=== PATIENT | male | born 1965 | race Two or more races ===

== ENCOUNTER 2022-10-31 06:38 | Inpatient (IN) | payer MEDICARE ==
[2022-10-31] VITALS (7 sets, daily range): BP systolic 134–174; BP diastolic 78–94
[~2022-10-31] VITALS: Ht 157.5 cm; Wt 54.5 kg
[2022-10-31] MEDS ORDERED: VANCOMYCIN 1GM/WATER(PEG/NADA) 200 ML IV ONE (07:30)
[2022-10-31] MEDS ORDERED: 0.9% SODIUM CHLORIDE 10 ML SYRINGE IVP PRN (07:45)
[2022-10-31] MEDS ORDERED: ONDANSETRON HCL 4 MG/2 ML VIAL IVP PRN ×2 (07:45→12:45)
[2022-10-31] MEDS ORDERED: SODIUM CHLORIDE 0.9% 1,000 ML IV ONE ×2 (07:45→12:45)
[2022-10-31 08:09] LABS: BASOPHILS % (AUTO) 0.7 % (0.0-2.0); EOSINOPHILS % (AUTO) 1.8 % (1.0-6.0); LYMPHOCYTES # (AUTO) 1.1 K/uL (1.0-4.8); LYMPHOCYTES % (AUTO) 9.1 % (22.0-44.0); MEAN CORPUSCULAR HEMOGLOBIN 29.8 pg (26.0-34.0); MEAN CORPUSCULAR HGB CONC 32.7 G/dL (31.0-37.0); MEAN CORPUSCULAR VOLUME 91 fL (80-100); MONOCYTES # (AUTO) 0.6 K/uL (0.1-1.0); NEUTROPHILS # (AUTO) 10.1 K/uL (1.8-7.7); NEUTROPHILS % (AUTO) 83.4 % (40.0-70.0); PLATELET COUNT (AUTO) 345 K/uL (150-450); RED BLOOD CELL COUNT(AUTO) 1.75 MIL/uL (4.50-5.90); RED CELL DISTRIBUTION WIDTH 16.5 % (11.5-14.5)
[2022-10-31 08:11] LABS: CALCIUM, TOTAL 7.1 mg/dL (8.8-10.5); CREATININE 5.86 mg/dL (0.60-1.30); POTASSIUM 4.2 mmol/L (3.5-5.1)
[2022-10-31 08:12] LABS: INR 1.1 (0.9-1.1); PROTHROMBIN TIME 11.2 SEC (9.4-11.6)
[2022-10-31 08:17] LABS: ALBUMIN 2.5 g/dL (3.4-5.0); BILIRUBIN,TOTAL 0.3 mg/dL (0.1-1.0); C-REACTIVE PROTEIN QUANT 6.52 mg/dL (0.00-0.30); TOTAL PROTEIN, SERUM 8.5 g/dL (6.4-8.2)
[2022-10-31 08:24] LABS: HEMOGLOBIN 5.2 g/dL (13.5-17.5)
[2022-10-31 08:33] LABS: LACTIC ACID 0.6 mmol/L (0.4-2.0)
[2022-10-31 09:03] LABS: GLUCOMETER DEV NAME(LOC) ERT.5; GLUCOSE,POINT OF CARE 175 MG/DL (70-110)
[2022-10-31 09:56] LABS: ERYTHROCYTE SEDIMENTATION RATE > 120 MM/HR (0-15)
[2022-10-31 10:39] LABS: COVID AG,FIA SOURCE NASAL SWAB
[2022-10-31] MEDS ORDERED: HYDROCODONE/ACETAMINOPHEN 5-325 MG TABLET PO PRN (12:45)
[2022-10-31] MEDS ORDERED: BISACODYL 10 MG RECTAL RECTAL SUPPOSITORY PR PRN (12:45)
[2022-10-31] MEDS ORDERED: MAGNESIUM HYDROXIDE SUSPENSION 30 ML UDCUP PO PRN (12:45)
[2022-10-31] MEDS ORDERED: MORPHINE SULFATE 2 MG/ML SYRINGE IVP PRN (12:45)
[2022-10-31] MEDS ORDERED: DEXTROSE 50%-WATER 25 GM/50 ML SYRINGE IVP PRN (12:45)
[2022-10-31] MEDS ORDERED: ACETAMINOPHEN 325 MG TABLET PO PRN (12:45)
[2022-10-31] MEDS ORDERED: ZOLPIDEM TARTRATE 5 MG TABLET PO PRN (12:45)
[2022-10-31] MEDS: AmLODIPine BESYLATE 10 MG TABLET PO SCH (13:02)
[2022-10-31] MEDS: PIPERACILLIN SODIUM/TAZOBACTAM 2.25 GM in DEXTROSE 5%-WATER 50 ML IV SCH ×2 (13:37→19:58)
[2022-10-31] MEDS: INSULIN LISPRO 100 UNITS/ML SQ PRN (16:56)
[2022-10-31] MEDS ORDERED: DEXTROSE 5%-0.9% SODIUM CHL 1,000 ML IV SCH (17:00)
[2022-10-31] MEDS ORDERED: PNEUMOCOCCAL VACCINE POLYVALENT 0.5 ML VIAL [PPSV23] IM. ONE (17:00)
[2022-10-31] MEDS ORDERED: EPOETIN ALFA 10,000 UNITS/ML VIAL SQ SCH (17:20)
[2022-10-31] MEDS: SODIUM BICARBONATE 75 MEQ in DEXTROSE 5%-0.45% SODIUM CHL 1,000 ML IV SCH (18:20)
[2022-10-31] MEDS ORDERED: INFLUENZA VIRUS VACCINE QVS 2022-23 (6MO+)/PF 60 MCG/0.5 ML SYRINGE IM. ONE (19:30)
[2022-10-31] MEDS: DOCUSATE SODIUM 100 MG CAPSULE PO SCH (19:58)
[2022-10-31] MEDS: HydrALAZINE HCL 50 MG TABLET PO SCH (19:58)
[2022-11-01] VITALS (13 sets, daily range): BP systolic 108–145; BP diastolic 60–97
[2022-11-01] MEDS ORDERED: SODIUM CHLORIDE 0.9% 250 ML IV ONE ×3 (02:51→21:20)
[2022-11-01 03:43] LABS: GLUCOMETER DEV NAME(LOC) 6N.2B; GLUCOSE,POINT OF CARE 129 MG/DL (70-110)
[2022-11-01 03:43] LABS: GLUCOMETER DEV NAME(LOC) 6N.1; GLUCOSE,POINT OF CARE 100 MG/DL (70-110)
[2022-11-01] MEDS: PIPERACILLIN SODIUM/TAZOBACTAM 2.25 GM in DEXTROSE 5%-WATER 50 ML IV SCH ×3 (06:24→21:05)
[2022-11-01 07:17] LABS: GLUCOMETER DEV NAME(LOC) 6N.1; GLUCOSE,POINT OF CARE 107 MG/DL (70-110)
[2022-11-01] MEDS: SODIUM BICARBONATE 75 MEQ in DEXTROSE 5%-0.45% SODIUM CHL 1,000 ML IV SCH (08:22)
[2022-11-01] MEDS: IRON SUCROSE COMPLEX 200 MG in SODIUM CHLORIDE 0.9% 100 ML IV SCH (08:22)
[2022-11-01] MEDS: AmLODIPine BESYLATE 10 MG TABLET PO SCH (08:23)
[2022-11-01] MEDS: HydrALAZINE HCL 50 MG TABLET PO SCH ×2 (08:23→21:05)
[2022-11-01] MEDS: DOCUSATE SODIUM 100 MG CAPSULE PO SCH ×2 (08:23→21:05)
[2022-11-01] MEDS: PANTOPRAZOLE SODIUM 40 MG DR TABLET PO SCH (08:23)
[2022-11-01 09:07] LABS: HEMATOCRIT 29.7 % (41-53); HEMOGLOBIN 10.2 g/dL (13.5-17.5); LYMPHOCYTES % (AUTO) 11.4 % (22.0-44.0); MEAN CORPUSCULAR HEMOGLOBIN 30.5 pg (26.0-34.0); MEAN CORPUSCULAR HGB CONC 34.4 G/dL (31.0-37.0); MEAN CORPUSCULAR VOLUME 89 fL (80-100); MONOCYTES # (AUTO) 0.4 K/uL (0.1-1.0); NEUTROPHILS # (AUTO) 7.1 K/uL (1.8-7.7); NEUTROPHILS % (AUTO) 80.6 % (40.0-70.0); PLATELET COUNT (AUTO) 324 K/uL (150-450); RED BLOOD CELL COUNT(AUTO) 3.34 MIL/uL (4.50-5.90)
[2022-11-01 09:22] LABS: CALCIUM, TOTAL 7.8 mg/dL (8.8-10.5); CREATININE 5.26 mg/dL (0.60-1.30); HEMOGLOBIN A1C 5.5 % (3.8-5.6); PHOSPHORUS 7.1 mg/dL (2.5-4.9); POTASSIUM 4.4 mmol/L (3.5-5.1)
[2022-11-01] MEDS: CALCIUM ACETATE 667 MG CAPSULE PO SCH ×2 (12:19→18:13)
[2022-11-01] MEDS: INSULIN LISPRO 100 UNITS/ML SQ PRN ×3 (12:35→21:13)
[2022-11-01 15:18] LABS: GLUCOMETER DEV NAME(LOC) 6N.1; GLUCOSE,POINT OF CARE 146 MG/DL (70-110)
[2022-11-01 18:48] LABS: GLUCOMETER DEV NAME(LOC) 6N.1; GLUCOSE,POINT OF CARE 210 MG/DL (70-110)
[2022-11-01 22:13] LABS: GLUCOMETER DEV NAME(LOC) 6N.2B; GLUCOSE,POINT OF CARE 156 MG/DL (70-110)
[2022-11-02] MEDS: SODIUM BICARBONATE 75 MEQ in DEXTROSE 5%-0.45% SODIUM CHL 1,000 ML IV SCH (01:23)
[2022-11-02] MEDS: PIPERACILLIN SODIUM/TAZOBACTAM 2.25 GM in DEXTROSE 5%-WATER 50 ML IV SCH ×3 (04:17→20:34)
[2022-11-02 05:23] VITALS: BP 141/72
[2022-11-02 05:46] LABS: BASOPHILS % (AUTO) 0.7 % (0.0-2.0); HEMATOCRIT 26.6 % (41-53); HEMOGLOBIN 9.3 g/dL (13.5-17.5); LYMPHOCYTES # (AUTO) 0.8 K/uL (1.0-4.8); LYMPHOCYTES % (AUTO) 7.8 % (22.0-44.0); MEAN CORPUSCULAR HEMOGLOBIN 30.5 pg (26.0-34.0); MEAN CORPUSCULAR VOLUME 87 fL (80-100); MONOCYTES # (AUTO) 0.9 K/uL (0.1-1.0); MONOCYTES % (AUTO) 8.8 % (2.0-9.0); NEUTROPHILS # (AUTO) 8.5 K/uL (1.8-7.7); NEUTROPHILS % (AUTO) 80.7 % (40.0-70.0); PLATELET COUNT (AUTO) 301 K/uL (150-450); RED BLOOD CELL COUNT(AUTO) 3.05 MIL/uL (4.50-5.90); RED CELL DISTRIBUTION WIDTH 15.6 % (11.5-14.5)
[2022-11-02] MEDS: IRON SUCROSE COMPLEX 200 MG in SODIUM CHLORIDE 0.9% 100 ML IV SCH (05:56)
[2022-11-02 05:57] LABS: CALCIUM, TOTAL 7.3 mg/dL (8.8-10.5); CREATININE 5.39 mg/dL (0.60-1.30); POTASSIUM 3.6 mmol/L (3.5-5.1)
[2022-11-02] MEDS ORDERED: BUPIVACAINE HCL/PF 0.5% 30 ML VIAL ONE (07:03)
[2022-11-02] MEDS ORDERED: LIDOCAINE/PF 1% 30 ML VIAL ONE (07:03)
[2022-11-02] MEDS ORDERED: SODIUM CL IRRIG SOLN BAG 3,000 ML IRRIG ONE (07:04)
[2022-11-02] MEDS ORDERED: RINGERS SOLUTION,LACTATED 1,000 ML IV ONE (07:15)
[2022-11-02 07:28] LABS: GLUCOMETER DEV NAME(LOC) 6N.2B; GLUCOSE,POINT OF CARE 129 MG/DL (70-110)
[2022-11-02] MEDS ORDERED: GELATIN SPONGE,ABSORBABLE 100 MM TP ONE (07:37)
[2022-11-02] MEDS ORDERED: THROMBIN, BOVINE 20000 UNITS/VIAL POWDER TP ONE (07:37)
[2022-11-02] MEDS: CALCIUM ACETATE 667 MG CAPSULE PO SCH ×3 (08:00→17:54)
[2022-11-02] MEDS: FOLIC ACID/VIT B COMPLEX AND C TABLET PO SCH (09:34)
[2022-11-02] MEDS: HydrALAZINE HCL 50 MG TABLET PO SCH ×2 (09:35→20:34)
[2022-11-02] MEDS: AmLODIPine BESYLATE 10 MG TABLET PO SCH (09:35)
[2022-11-02] MEDS: PANTOPRAZOLE SODIUM 40 MG DR TABLET PO SCH (09:35)
[2022-11-02] MEDS: DOCUSATE SODIUM 100 MG CAPSULE PO SCH ×2 (09:35→20:34)
[2022-11-02] MEDS: ASCORBIC ACID 500 MG TABLET PO SCH (09:35)
[2022-11-02] MEDS: INSULIN LISPRO 100 UNITS/ML SQ PRN ×3 (12:03→20:34)
[2022-11-02 15:43] VITALS: BP 126/65
[2022-11-02 16:53] LABS: GLUCOMETER DEV NAME(LOC) 6N.1; GLUCOSE,POINT OF CARE 194 MG/DL (70-110)
[2022-11-02] MEDS: SODIUM BICARBONATE 650 MG TABLET PO SCH (17:26)
[2022-11-02 17:27] LABS: GLUCOMETER DEV NAME(LOC) 6N.2B; GLUCOSE,POINT OF CARE 158 MG/DL (70-110)
[2022-11-02 23:48] LABS: GLUCOMETER DEV NAME(LOC) 6N.2B; GLUCOSE,POINT OF CARE 146 MG/DL (70-110)
[2022-11-03 04:10] VITALS: BP 132/64
[2022-11-03] MEDS: PIPERACILLIN SODIUM/TAZOBACTAM 2.25 GM in DEXTROSE 5%-WATER 50 ML IV SCH ×3 (04:49→20:20)
[2022-11-03] MEDS ORDERED: PROPOFOL 1% 20 ML VIAL IVP ONE (05:37)
[2022-11-03] MEDS: SODIUM BICARBONATE 650 MG TABLET PO SCH ×2 (06:05→17:56)
[2022-11-03] MEDS: IRON SUCROSE COMPLEX 200 MG in SODIUM CHLORIDE 0.9% 100 ML IV SCH (06:05)
[2022-11-03 06:39] LABS: BASOPHILS % (AUTO) 0.6 % (0.0-2.0); HEMOGLOBIN 7.5 g/dL (13.5-17.5); LYMPHOCYTES # (AUTO) 0.7 K/uL (1.0-4.8); LYMPHOCYTES % (AUTO) 5.7 % (22.0-44.0); MEAN CORPUSCULAR HEMOGLOBIN 30.1 pg (26.0-34.0); MEAN CORPUSCULAR VOLUME 88 fL (80-100); MONOCYTES # (AUTO) 1.1 K/uL (0.1-1.0); MONOCYTES % (AUTO) 8.9 % (2.0-9.0); NEUTROPHILS # (AUTO) 10.5 K/uL (1.8-7.7); NEUTROPHILS % (AUTO) 83.8 % (40.0-70.0); PLATELET COUNT (AUTO) 267 K/uL (150-450); RED BLOOD CELL COUNT(AUTO) 2.49 MIL/uL (4.50-5.90); RED CELL DISTRIBUTION WIDTH 15.7 % (11.5-14.5)
[2022-11-03 06:49] LABS: CALCIUM, TOTAL 7.3 mg/dL (8.8-10.5); CREATININE 5.55 mg/dL (0.60-1.30); POTASSIUM 3.8 mmol/L (3.5-5.1)
[2022-11-03 07:41] LABS: GLUCOMETER DEV NAME(LOC) 6N.2B; GLUCOSE,POINT OF CARE 115 MG/DL (70-110)
[2022-11-03 08:23] VITALS: BP 132/66
[2022-11-03] MEDS: FOLIC ACID/VIT B COMPLEX AND C TABLET PO SCH (08:38)
[2022-11-03] MEDS: ASCORBIC ACID 500 MG TABLET PO SCH (08:39)
[2022-11-03] MEDS: DOCUSATE SODIUM 100 MG CAPSULE PO SCH ×2 (08:39→20:20)
[2022-11-03] MEDS: PANTOPRAZOLE SODIUM 40 MG DR TABLET PO SCH (08:39)
[2022-11-03] MEDS: CALCIUM ACETATE 667 MG CAPSULE PO SCH ×3 (08:39→17:56)
[2022-11-03] MEDS: AmLODIPine BESYLATE 10 MG TABLET PO SCH (08:39)
[2022-11-03] MEDS: HydrALAZINE HCL 50 MG TABLET PO SCH ×2 (08:39→20:20)
[2022-11-03] MEDS ORDERED: CALCITRIOL 0.25 MCG CAPSULE PO SCH (09:00)
[2022-11-03] MEDS: INSULIN LISPRO 100 UNITS/ML SQ PRN ×3 (11:32→20:37)
[2022-11-03 13:16] LABS: GLUCOMETER DEV NAME(LOC) 6N.1; GLUCOSE,POINT OF CARE 212 MG/DL (70-110)
[2022-11-03 16:10] VITALS: BP 125/67
[2022-11-03 19:30] VITALS: BP 141/74
[2022-11-03 21:16] LABS: GLUCOMETER DEV NAME(LOC) 6N.2B; GLUCOSE,POINT OF CARE 159 MG/DL (70-110)
[2022-11-04 04:00] VITALS: BP 137/76
[2022-11-04] MEDS: PIPERACILLIN SODIUM/TAZOBACTAM 2.25 GM in DEXTROSE 5%-WATER 50 ML IV SCH ×2 (04:44→12:09)
[2022-11-04] MEDS: SODIUM BICARBONATE 650 MG TABLET PO SCH (05:51)
[2022-11-04] MEDS: IRON SUCROSE COMPLEX 200 MG in SODIUM CHLORIDE 0.9% 100 ML IV SCH (05:52)
[2022-11-04 06:17] LABS: GLUCOMETER DEV NAME(LOC) 6N.2B; GLUCOSE,POINT OF CARE 109 MG/DL (70-110)
[2022-11-04 07:35] VITALS: BP 143/80
[2022-11-04] MEDS: PANTOPRAZOLE SODIUM 40 MG DR TABLET PO SCH (08:09)
[2022-11-04] MEDS: AmLODIPine BESYLATE 10 MG TABLET PO SCH (08:09)
[2022-11-04] MEDS: FOLIC ACID/VIT B COMPLEX AND C TABLET PO SCH (08:09)
[2022-11-04] MEDS: CALCIUM ACETATE 667 MG CAPSULE PO SCH ×2 (08:09→12:09)
[2022-11-04] MEDS: ASCORBIC ACID 500 MG TABLET PO SCH (08:09)
[2022-11-04] MEDS: HydrALAZINE HCL 50 MG TABLET PO SCH (08:09)
[2022-11-04] MEDS: DOCUSATE SODIUM 100 MG CAPSULE PO SCH (08:09)
[2022-11-04 09:06] LABS: GLUCOMETER DEV NAME(LOC) 6N.1; GLUCOSE,POINT OF CARE 167 MG/DL (70-110)
[2022-11-04] MEDS: INSULIN LISPRO 100 UNITS/ML SQ PRN (11:33)
[2022-11-04] MEDS ORDERED: AMLO-258 PO (12:30)
[2022-11-04] MEDS ORDERED: ASCO500 PO (12:30)
[2022-11-04] MEDS ORDERED: PHOSLOC PO (12:31)
[2022-11-04] MEDS ORDERED: CALC0.2521 PO (12:31)
[2022-11-04] MEDS ORDERED: HYDR50TA36 PO (12:32)
[2022-11-04] MEDS ORDERED: B CO1CAP6 PO (12:32)
[2022-11-04] MEDS ORDERED: SODI650T33 PO (12:33)
[2022-11-04] MEDS ORDERED: PANT-31 PO (12:33)
[2022-11-04] MEDS ORDERED: ACET-2247 PO (12:34)
[2022-11-04] MEDS ORDERED: BISA10SU11 PR (12:34)
[2022-11-04] MEDS ORDERED: HYDR-4723 PO (12:35)
[2022-11-04] MEDS ORDERED: INSU100V SQ (12:36)
[2022-11-04] MEDS ORDERED: AMOX1TAB15 PO (12:37)
[2022-11-04 15:26] LABS: GLUCOMETER DEV NAME(LOC) 6N.2B; GLUCOSE,POINT OF CARE 167 MG/DL (70-110)
[2022-11-04 16:56] VITALS: BP 139/69
== END 2022-11-04 16:07 | DRG 987 ==
LOC: EMS 06:38 → 6N 11:13
PROVIDERS: ADMIT Hospitalist; ATTEND Hospitalist
PROC: 30233N1 Transfusion of Nonautologous Red Blood Cells into Peripheral Vein, Percutaneous Approach (ICD-10-PCS; principal; 2022-10-31)
PROC: 30233N1 Transfusion of Nonautologous Red Blood Cells into Peripheral Vein, Percutaneous Approach (ICD-10-PCS; 2022-11-01)
PROC: 0QBP0ZZ Excision of Left Metatarsal, Open Approach (ICD-10-PCS; 2022-11-02)
DX: E11.52 Type 2 diabetes mellitus with diabetic peripheral angiopathy with gangrene (principal); N17.0 Acute kidney failure with tubular necrosis; R65.11 Systemic inflammatory response syndrome (SIRS) of non-infectious origin with acute organ dysfunction; N18.6 End stage renal disease; E87.20 Acidosis, unspecified; E46 Unspecified protein-calorie malnutrition; N25.81 Secondary hyperparathyroidism of renal origin; I69.351 Hemiplegia and hemiparesis following cerebral infarction affecting right dominant side; I12.0 Hypertensive chronic kidney disease with stage 5 chronic kidney disease or end stage renal disease; E11.22 Type 2 diabetes mellitus with diabetic chronic kidney disease; E11.65 Type 2 diabetes mellitus with hyperglycemia; D64.9 Anemia, unspecified; E21.3 Hyperparathyroidism, unspecified; Z20.822 Contact with and (suspected) exposure to COVID-19; Z91.199 Patient's noncompliance with other medical treatment and regimen due to unspecified reason; Z93.3 Colostomy status; Z79.899 Other long term (current) drug therapy; Z99.3 Dependence on wheelchair; Z68.22 Body mass index [BMI] 22.0-22.9, adult
CPT/HCPCS: 73718; 76770; 80048; 80053; 82962; 83036; 83605; 83970; 84100; 84145; 85025; 85610; 85651; 85730; 86140; 86850; 86900; 86901; 86923; 87040; 87070; 87081; 87101; 87205; 88305; 93925; 97162; 99291; J0885; J1756; J2543; J2704; J3490; J7030; J7050; J7060; P9016; Q9967; 36415-L1; 36415-TC; 82803-TC; Z7610

== ENCOUNTER 2022-12-13 18:38 | Inpatient (IN) | payer MEDICARE ==
[~2022-12-13] VITALS: Ht 157.5 cm; Wt 55.2 kg
[~2022-12-13 18:38] MED LIST: ACET-2247 PO; AMLO-258 PO; AMOX1TAB15 PO; ASCO500 PO; B CO1CAP6 PO; BISA10SU11 PR; CALC0.2521 PO; HYDR-4723 PO; HYDR50TA36 PO; INSU100V SQ; PANT-31 PO; PHOSLOC PO; SODI650T33 PO
[2022-12-13 19:53] LABS: BASOPHILS % (AUTO) 0.4 % (0.0-2.0); EOSINOPHILS % (AUTO) 11.7 % (1.0-6.0); LYMPHOCYTES # (AUTO) 1.5 K/uL (1.0-4.8); LYMPHOCYTES % (AUTO) 15.5 % (22.0-44.0); MEAN CORPUSCULAR HEMOGLOBIN 29.7 pg (26.0-34.0); MEAN CORPUSCULAR VOLUME 87 fL (80-100); MONOCYTES # (AUTO) 0.7 K/uL (0.1-1.0); MONOCYTES % (AUTO) 6.9 % (2.0-9.0); NEUTROPHILS # (AUTO) 6.4 K/uL (1.8-7.7); NEUTROPHILS % (AUTO) 65.5 % (40.0-70.0); PLATELET COUNT (AUTO) 167 K/uL (150-450); RED BLOOD CELL COUNT(AUTO) 1.85 MIL/uL (4.50-5.90); RED CELL DISTRIBUTION WIDTH 19.9 % (11.5-14.5)
[2022-12-13 19:55] LABS: HEMATOCRIT 16.2 % (41-53); HEMOGLOBIN 5.5 g/dL (13.5-17.5)
[2022-12-13 20:00] LABS: CREATININE 7.81 mg/dL (0.60-1.30); POTASSIUM 4.8 mmol/L (3.5-5.1)
[2022-12-13 20:06] LABS: ALBUMIN 2.5 g/dL (3.4-5.0); BILIRUBIN,TOTAL 0.3 mg/dL (0.1-1.0); TOTAL PROTEIN, SERUM 7.4 g/dL (6.4-8.2)
[2022-12-13 20:39] LABS: PATHOLOGY REVIEW, DIFF YES
[2022-12-13 21:30] VITALS: BP 180/85
[2022-12-13] MEDS ORDERED: ACETAMINOPHEN 325 MG TABLET PO PRN (21:30)
[2022-12-13] MEDS ORDERED: ONDANSETRON HCL 4 MG/2 ML VIAL IVP PRN (21:30)
[2022-12-13] MEDS ORDERED: BISACODYL 10 MG RECTAL RECTAL SUPPOSITORY PR PRN (21:30)
[2022-12-13 21:45] VITALS: BP 183/89
[2022-12-13 22:00] VITALS: BP 187/93
[2022-12-13 22:30] VITALS: BP 185/91
[2022-12-13 22:33] LABS: RETICULOCYTE % (AUTO) 5.3 % (0.5-2.3)
[2022-12-13 23:00] VITALS: BP 179/89
[2022-12-13 23:30] VITALS: BP 189/88
[2022-12-14] VITALS (8 sets, daily range): BP systolic 143–186; BP diastolic 76–101
[2022-12-14 04:25] LABS: COVID AG,FIA SOURCE NASAL SWAB
[2022-12-14] MEDS: ASCORBIC ACID 500 MG TABLET PO SCH (09:00)
[2022-12-14] MEDS ORDERED: HydrALAZINE HCL 50 MG TABLET PO SCH (09:00)
[2022-12-14] MEDS: CALCIUM ACETATE 667 MG CAPSULE PO SCH ×3 (09:28→18:24)
[2022-12-14] MEDS: AmLODIPine BESYLATE 10 MG TABLET PO SCH (09:28)
[2022-12-14] MEDS: FOLIC ACID/VIT B COMPLEX AND C TABLET PO SCH (09:28)
[2022-12-14] MEDS: PANTOPRAZOLE SODIUM 40 MG DR TABLET PO SCH (09:28)
[2022-12-14 09:53] LABS: CALCIUM, TOTAL 7.5 mg/dL (8.8-10.5); CREATININE 7.59 mg/dL (0.60-1.30); POTASSIUM 4.2 mmol/L (3.5-5.1)
[2022-12-14] MEDS ORDERED: EPOETIN ALFA 10,000 UNITS/ML VIAL SQ SCH (10:00)
[2022-12-14] MEDS ORDERED: SODIUM CHLORIDE 0.9% 1,000 ML IV ONE (10:45)
[2022-12-14] MEDS: CALCITRIOL 0.25 MCG CAPSULE PO SCH (12:14)
[2022-12-14] MEDS: SODIUM BICARBONATE 650 MG TABLET PO SCH ×4 (12:15→22:26)
[2022-12-14 17:23] LABS: BASOPHILS % (AUTO) 0.4 % (0.0-2.0); EOSINOPHILS % (AUTO) 11.5 % (1.0-6.0); HEMATOCRIT 22.1 % (41-53); HEMOGLOBIN 7.5 g/dL (13.5-17.5); LYMPHOCYTES % (AUTO) 11.8 % (22.0-44.0); MEAN CORPUSCULAR HEMOGLOBIN 29.2 pg (26.0-34.0); MEAN CORPUSCULAR HGB CONC 34.1 G/dL (31.0-37.0); MEAN CORPUSCULAR VOLUME 86 fL (80-100); MONOCYTES # (AUTO) 0.6 K/uL (0.1-1.0); MONOCYTES % (AUTO) 6.8 % (2.0-9.0); NEUTROPHILS % (AUTO) 69.5 % (40.0-70.0); PLATELET COUNT (AUTO) 147 K/uL (150-450); RED BLOOD CELL COUNT(AUTO) 2.58 MIL/uL (4.50-5.90); RED CELL DISTRIBUTION WIDTH 18.1 % (11.5-14.5)
[2022-12-14] MEDS: HydrALAZINE HCL 25 MG TABLET PO SCH (20:16)
[2022-12-15 00:25] VITALS: BP 149/79
[2022-12-15 04:21] VITALS: BP 162/85
[2022-12-15 07:53] VITALS: BP 165/82
[2022-12-15] MEDS: SODIUM BICARBONATE 650 MG TABLET PO SCH ×4 (09:00→21:11)
[2022-12-15] MEDS ORDERED: CALCITRIOL 0.25 MCG CAPSULE PO SCH (09:00)
[2022-12-15 09:51] LABS: BASOPHILS % (AUTO) 0.6 % (0.0-2.0); EOSINOPHILS % (AUTO) 12.2 % (1.0-6.0); HEMATOCRIT 21.4 % (41-53); HEMOGLOBIN 7.2 g/dL (13.5-17.5); LYMPHOCYTES # (AUTO) 0.9 K/uL (1.0-4.8); MEAN CORPUSCULAR HEMOGLOBIN 29.2 pg (26.0-34.0); MEAN CORPUSCULAR HGB CONC 33.8 G/dL (31.0-37.0); MEAN CORPUSCULAR VOLUME 87 fL (80-100); MONOCYTES # (AUTO) 0.5 K/uL (0.1-1.0); MONOCYTES % (AUTO) 7.1 % (2.0-9.0); NEUTROPHILS # (AUTO) 4.8 K/uL (1.8-7.7); NEUTROPHILS % (AUTO) 67.1 % (40.0-70.0); PLATELET COUNT (AUTO) 131 K/uL (150-450); RED BLOOD CELL COUNT(AUTO) 2.47 MIL/uL (4.50-5.90); RED CELL DISTRIBUTION WIDTH 18.8 % (11.5-14.5)
[2022-12-15 09:56] LABS: CALCIUM, TOTAL 7.3 mg/dL (8.8-10.5); CREATININE 7.3 mg/dL (0.60-1.30); POTASSIUM 4.1 mmol/L (3.5-5.1)
[2022-12-15] MEDS: CALCIUM ACETATE 667 MG CAPSULE PO SCH ×3 (09:59→18:03)
[2022-12-15] MEDS: HydrALAZINE HCL 25 MG TABLET PO SCH ×3 (10:00→21:10)
[2022-12-15] MEDS: ASCORBIC ACID 500 MG TABLET PO SCH (10:06)
[2022-12-15] MEDS: FOLIC ACID/VIT B COMPLEX AND C TABLET PO SCH (10:07)
[2022-12-15] MEDS: PANTOPRAZOLE SODIUM 40 MG DR TABLET PO SCH (10:07)
[2022-12-15] MEDS: AmLODIPine BESYLATE 10 MG TABLET PO SCH (10:07)
[2022-12-15] MEDS: CALCITRIOL 0.25 MCG CAPSULE PO SCH (10:08)
[2022-12-15 12:07] VITALS: BP 157/78
[2022-12-15 14:02] VITALS: BP 141/83
[2022-12-15 20:10] VITALS: BP 127/74
[2022-12-15 22:01] LABS: GLUCOMETER DEV NAME(LOC) 5N.1C; GLUCOSE,POINT OF CARE 181 MG/DL (70-110)
[2022-12-16 00:51] VITALS: BP 129/77
[2022-12-16 06:02] VITALS: BP 132/71
[2022-12-16 07:32] VITALS: BP 144/74
[2022-12-16] MEDS: PANTOPRAZOLE SODIUM 40 MG DR TABLET PO SCH (09:25)
[2022-12-16] MEDS: CALCIUM ACETATE 667 MG CAPSULE PO SCH ×2 (09:25→12:49)
[2022-12-16] MEDS: CALCITRIOL 0.25 MCG CAPSULE PO SCH (09:25)
[2022-12-16] MEDS: HydrALAZINE HCL 25 MG TABLET PO SCH (09:25)
[2022-12-16] MEDS: AmLODIPine BESYLATE 10 MG TABLET PO SCH (09:25)
[2022-12-16] MEDS: SODIUM BICARBONATE 650 MG TABLET PO SCH (09:25)
[2022-12-16] MEDS: ASCORBIC ACID 500 MG TABLET PO SCH (09:26)
[2022-12-16] MEDS: FOLIC ACID/VIT B COMPLEX AND C TABLET PO SCH (09:28)
[2022-12-16 11:27] VITALS: BP 167/64
[2022-12-16 11:32] LABS: CALCIUM, TOTAL 7.6 mg/dL (8.8-10.5); CREATININE 7.49 mg/dL (0.60-1.30); POTASSIUM 4.3 mmol/L (3.5-5.1)
[2022-12-16 11:47] LABS: BASOPHILS % (AUTO) 0.5 % (0.0-2.0); EOSINOPHILS % (AUTO) 12.7 % (1.0-6.0); HEMATOCRIT 25.4 % (41-53); HEMOGLOBIN 8.5 g/dL (13.5-17.5); LYMPHOCYTES # (AUTO) 1.5 K/uL (1.0-4.8); MEAN CORPUSCULAR HEMOGLOBIN 29.1 pg (26.0-34.0); MEAN CORPUSCULAR HGB CONC 33.6 G/dL (31.0-37.0); MEAN CORPUSCULAR VOLUME 87 fL (80-100); MONOCYTES # (AUTO) 0.5 K/uL (0.1-1.0); MONOCYTES % (AUTO) 5.9 % (2.0-9.0); NEUTROPHILS # (AUTO) 5.5 K/uL (1.8-7.7); NEUTROPHILS % (AUTO) 63.9 % (40.0-70.0); PLATELET COUNT (AUTO) 171 K/uL (150-450); RED BLOOD CELL COUNT(AUTO) 2.94 MIL/uL (4.50-5.90); RED CELL DISTRIBUTION WIDTH 18.4 % (11.5-14.5)
[2022-12-16 13:55] LABS: COVID AG,FIA SOURCE NASAL SWAB
== END 2022-12-16 15:30 | DRG 811 ==
LOC: EMS 18:58 → 5S 12-14 05:01
PROVIDERS: ADMIT Internal Medicine; ATTEND Internal Medicine
DX: D64.9 Anemia, unspecified (principal); G93.41 Metabolic encephalopathy; N17.0 Acute kidney failure with tubular necrosis; E46 Unspecified protein-calorie malnutrition; E87.20 Acidosis, unspecified; N18.5 Chronic kidney disease, stage 5; I12.0 Hypertensive chronic kidney disease with stage 5 chronic kidney disease or end stage renal disease; E11.52 Type 2 diabetes mellitus with diabetic peripheral angiopathy with gangrene; G82.20 Paraplegia, unspecified; I69.359 Hemiplegia and hemiparesis following cerebral infarction affecting unspecified side; E11.22 Type 2 diabetes mellitus with diabetic chronic kidney disease; E11.65 Type 2 diabetes mellitus with hyperglycemia; Z20.822 Contact with and (suspected) exposure to COVID-19; E21.3 Hyperparathyroidism, unspecified; Z87.891 Personal history of nicotine dependence; Z91.199 Patient's noncompliance with other medical treatment and regimen due to unspecified reason; Z93.3 Colostomy status; Z99.2 Dependence on renal dialysis; Z74.01 Bed confinement status; Z79.899 Other long term (current) drug therapy; Z68.22 Body mass index [BMI] 22.0-22.9, adult
CPT/HCPCS: 80048; 80053; 82271; 82962; 83540; 83550; 84484; 85025; 85045; 85610; 85730; 86850; 86900; 86901; 86923; 87081; 97162; 99291; G0378; J0885; J7030; P9016